=== PATIENT | male | born 1965 | race Caucasian/White ===

== ENCOUNTER 2016-07-02 08:34 | Emergency (ER) | payer SELFPAY ==
[~2016-07-02] VITALS: Ht 185.4 cm; Wt 115.3 kg
[2016-07-02 08:37] VITALS: TEMP 36.5; Ht 185.4 cm; Wt 115.3 kg
[2016-07-02 10:14] LABS: URINE APPEARANCE CLEAR (CLEAR); URINE BILIRUBIN NEG (NEG); URINE COLOR DK YELLOW; URINE NITRITE NEG (NEG); UROBILINOGEN NEG (NEG); ZZURINE CULT IF INDIC CATH NO
[2016-07-02 10:16] LABS: MANUAL MICROSCOPIC REQUIRED? NO; REVIEW REQ? NO
[2016-07-02 10:23] LABS: BASO % 0.3 %; BASO ABS # 0.02 K/uL (0-0.2); COMPLETE YES; EOS % 0.5 %; HEMATOCRIT 41.5 % (42-52); IG% 0.2 %; LYMPH % 32.1 %; LYMPH ABS # 1.97 K/uL (1.2-3.4); MEAN CELL VOLUME 92.2 fL (80-100); MEAN CORPUSCULAR HEMOGLOBIN 32.2 pg (25-34); MEAN CORPUSCULAR HGB CONC 34.9 g/dl (32-36); MEAN PLATELET VOLUME 10.4 fL (7.4-10.4); MONO % 9.9 %; PLATELET COUNT 196 K/uL (130-400); WHITE BLOOD COUNT 6.14 K/uL (4.8-10.8)
[2016-07-02 10:49] LABS: ALB/GLOB RATIO 1.1 (0.9-2); BUN/CREATININE RATIO 17.3 (10-20); CALCIUM 8.9 mg/dl (8.5-10.1); CREATININE 1.2 mg/dl (0.60-1.40); MAGNESIUM 2.4 mg/dl (1.8-2.4); POTASSIUM 4.1 mmol/L (3.5-5.1)
--- NOTE | 2016-07-02 11:19 | DIAGNOSTIC IMAGING REPORT ---
ULTRASOUND KIDNEYS AND BLADDER CLINICAL HISTORY: Decreased urine output. COMPARISON STUDY: No priors. TECHNIQUE: Real-time, grayscale, and color flow sonography of the kidneys and bladder is performed. Images are reviewed in the transverse and longitudinal planes. FINDINGS: Kidneys: The kidneys are normal in size and echotexture. The right kidney measures 12.1 x 6.5 x 7.1 cm and the left kidney measures 12.4 x 6.4 x 5.9 cm. There is no hydronephrosis. No shadowing renal calculi are identified. There is no sonographic evidence of contour deforming renal mass lesion. No perinephric fluid is identified. Bladder: The bladder was decompressed around a Carvajal catheter and could not be evaluated. Upper abdomen: Survey images of the liver demonstrate hepatomegaly and hepatic steatosis. IMPRESSION: 1. The kidneys are normal in size and without hydronephrosis. 2. The bladder was decompressed around a Carvajal catheter and could not be assessed. Electronically signed by: Michael Smith M.D. 07/02/2016 11:18 AM Dictated Date/Time: 07/02/2016 11:17 AM
[2016-07-02 11:40] LABS: URINE APPEARANCE TURBID (CLEAR); URINE BILIRUBIN NEG (NEG); URINE COLOR YELLOW; URINE NITRITE NEG (NEG); URINE PH >= 9.0 (4.5-7.5); URINE SPECIFIC GRAVITY 1.023 (1.000-1.030); UROBILINOGEN NEG (NEG); ZZURINE CULT IF INDIC CATH NO
[2016-07-02 11:41] LABS: MANUAL MICROSCOPIC REQUIRED? NO; REVIEW REQ? NO
[2016-07-02] MEDS ORDERED: SODIUM CHLORIDE 0.9% 1000ML 1,000 ML IV STA (12:14)
[2016-07-02] MEDS ORDERED: OPTIRAY 320 IV PRN (12:30)
--- NOTE | 2016-07-02 13:03 | DIAGNOSTIC IMAGING REPORT ---
ABDOMEN AND PELVIS CT WITH IV CONTRAST CT DOSE: 961.91 mGy.cm HISTORY: Unable to void. voiding issues TECHNIQUE: Multiaxial CT images of the abdomen and pelvis were performed following the use of intravenous contrast. COMPARISON STUDY: None. FINDINGS: The lung bases are clear. No pneumoperitoneum. No pneumatosis. No suspicious lytic or blastic osseous lesions. The liver, gallbladder, pancreas, adrenal glands, and kidneys are unremarkable. No hydronephrosis. There is an enhancing 1.5 cm lesion within the spleen. No retroperitoneal lymphadenopathy. Mild to moderate atherosclerotic plaque within the abdominal aorta. The abdominal aorta measures up to 2.6 cm in diameter. The bladder is completely decompressed by a Carvajal catheter. No pelvic free fluid. A few diverticula. The prostate gland is normal in size. No bowel wall thickening or obstruction. Normal appendix. IMPRESSION: 1. The bladder is completely decompressed by a Carvajal catheter. 2. No hydronephrosis. 3. No bowel wall thickening or obstruction. 4. A few colonic diverticula. 5. Normal appendix. 6. A 15 mm enhancing lesion within the spleen. This is indeterminate but favors a hemangioma or hamartoma. Electronically signed by: Maurisio Burnett M.D. 07/02/2016 1:01 PM Dictated Date/Time: 07/02/2016 12:51 PM
--- NOTE | 2016-07-02 13:26 | EMERGENCY ROOM VISIT NOTE ---
History First contact with patient: 09:18 Chief Complaint: UNABLE TO VOID Stated Complaint: NO URINATION/BM IN 36 HOURS Nursing Triage Summary: Pt c/o urinary retention x 3 weeks, he thought it was due to the medication he was taking. But in the last 36 hours he only had about 60cc out. Took 40 of lasix Friday, put out 700cc in 4 hours, states it was clear, light, no sediment. Believes he has prostate problems. States he feels like he is filling up with fluid. Pt states he was taking amilodipine, but hasn't taken it for 2 weeks. Patient reported having CT scans with IV contrast recently and he isn't sure if that could have done something to his kidney function. Patient reports abdomen is distended more than usual. History of Present Illness The patient is a 50 year old male who presents to the Emergency Department by private vehicle for evaluation of his voiding issues. He reports that he is not urinated in the last 36 hours. He was recently seen at the [facility] and had a cardiac catheterization performed which demonstrated slight coronary artery disease. No stenting or intervention was performed at this point. The patient reports being placed on blood pressure medications as well as niacin. He reports that shortly after he received a CT with IV contrast of the abdomen and pelvis as well as the head. He's had decreased urinary output most recently. He was concerned as he felt as though his IV contrast studies has resulted in renal damage. On Friday, he took 40 mg of Lasix that was a friend's. He had a significant amount of urinary output. He has not had any urinary output since. He feels bloated. He reports some mild discomfort in his abdomen rating his pain a 6/10. He denies a history of prostate issues. He is frustrated with the [facility] as he reports that they're not managing his symptoms appropriately. 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 He denies any fevers, chills, headaches, dizziness, lightheadedness, chest pain, palpitations , short of breath, nausea, vomiting, hematochezia, melena, hematuria, or dysuria. He denies any risk for STI. Review of Systems A complete 10-point Review of Systems was discussed with the patient, with pertinent positives and negatives listed in the History of Present Illness. All remaining Review of Systems questions can be considered negative unless otherwise specified. Social History Smoking Status: Former Smoker Smokeless Tobacco Use: No Drug Use: none Occupation Status: employed Current/Historical Medications No Active Prescriptions or Reported Meds Allergies Coded Allergies: Statins (Verified Allergy, Intermediate, muscle cramping, gi bleed, ) Physical Exam Vital Signs Date Time Temp Pulse Resp B/P Pulse Ox O2 Delivery O2 Flow Rate FiO2 07/02/16 13:50 81 18 112/92 99 07/02/16 12:45 79 115/89 07/02/16 11:09 77 18 138/78 98 Room Air 07/02/16 08:37 36.5 86 18 134/78 98 Room Air Pain Rating (0-10): 2 Physical Exam VITAL SIGNS - Vital signs and nursing notes were reviewed. GENERAL - 50-year-old male appearing his stated age who is in no acute distress. Communicates well with provider and answers questions appropriately. LUNGS - Chest wall symmetric without accessory muscle use, intercostals retractions, or central cyanosis. Normal vesicular breath sounds CTA B/L. No wheezes, rales, or rhonchi appreciated. CARDIAC - RRR with S1/S2. No murmur, rubs, or gallops appreciated. ABDOMEN - Abdominal contour obese and without pulsations or visible masses. BS normoactive all four quadrants. No tenderness to palpation appreciated throughout. No guarding. No Rebound Tenderness. Negative Rovsing's. Negative Gerardo's. No palpable masses, hepatosplenomegaly, or ascites noted. GENITOURINARY -circumcised male without penile lesions or adhesions. No urethral discharge. No testicular tenderness to palpation appreciated bilaterally. No palpable masses. EXTREMITIES - No clubbing or peripheral cyanosis. No pretibial edema present. +3 /5 radial and dorsalis pedis pulses palpated throughout. PSYCH - A&Ox3 and cooperates fully with examiner. Pt is very pleasant and interacts well with examiner. Medical Decision & Procedures ER Provider Diagnostic Interpretation: Radiological imaging and reports were reviewed by myself. Radiologist's Interpretation as follows: ULTRASOUND KIDNEYS AND BLADDER CLINICAL HISTORY: Decreased urine output. COMPARISON STUDY: No priors. TECHNIQUE: Real-time, grayscale, and color flow sonography of the kidneys and bladder is performed. Images are reviewed in the transverse and longitudinal planes. FINDINGS: Kidneys: The kidneys are normal in size and echotexture. The right kidney measures 12.1 x 6.5 x 7.1 cm and the left kidney measures 12.4 x 6.4 x 5.9 cm. There is no hydronephrosis. No shadowing renal calculi are identified. There is no sonographic evidence of contour deforming renal mass lesion. No perinephric fluid is identified. Bladder: The bladder was decompressed around a Carvajal catheter and could not be evaluated. Upper abdomen: Survey images of the liver demonstrate hepatomegaly and hepatic steatosis. IMPRESSION: 1. The kidneys are normal in size and without hydronephrosis. 2. The bladder was decompressed around a Carvajal catheter and could not be assessed. ABDOMEN AND PELVIS CT WITH IV CONTRAST CT DOSE: 961.91 mGy.cm HISTORY: Unable to void. voiding issues TECHNIQUE: Multiaxial CT images of the abdomen and pelvis were performed following the use of intravenous contrast. COMPARISON STUDY: None. FINDINGS: The lung bases are clear. No pneumoperitoneum. No pneumatosis. No suspicious lytic or blastic osseous lesions. The liver, gallbladder, pancreas, adrenal glands, and kidneys are unremarkable. No hydronephrosis. There is an enhancing 1.5 cm lesion within the spleen. No retroperitoneal lymphadenopathy. Mild to moderate atherosclerotic plaque within the abdominal aorta. The abdominal aorta measures up to 2.6 cm in diameter. The bladder is completely decompressed by a Carvajal catheter. No pelvic free fluid. A few diverticula. The prostate gland is normal in size. No bowel wall thickening or obstruction. Normal appendix. IMPRESSION: 1. The bladder is completely decompressed by a Carvajal catheter. 2. No hydronephrosis. 3. No bowel wall thickening or obstruction. 4. A few colonic diverticula. 5. Normal appendix. 6. A 15 mm enhancing lesion within the spleen. This is indeterminate but favors a hemangioma or hamartoma. Laboratory Results 07/02/16 09:51 Red Blood Count 4.50, Mean Corpuscular Volume 92.2, Mean Corpuscular Hemoglobin 32.2, Mean Corpuscular Hemoglobin Concent 34.9, Mean Platelet Volume 10.4, Neutrophils (%) (Auto) 57.0, Lymphocytes (%) (Auto) 32.1, Monocytes (%) (Auto) 9.9, Eosinophils (%) (Auto) 0.5, Basophils (%) (Auto) 0.3, Neutrophils # (Auto) 3.50, Lymphocytes # (Auto) 1.97, Monocytes # (Auto) 0.61, Eosinophils # (Auto) 0.03, Basophils # (Auto) 0.02 07/02/16 09:51 Test 07/02/16 09:51 07/02/16 09:53 07/02/16 10:06 White Blood Count 6.14 K/uL (4.8-10.8) Red Blood Count 4.50 M/uL (4.7-6.1) Hemoglobin 14.5 g/dL (14.0-18.0) Hematocrit 41.5 % (42-52) Mean Corpuscular Volume 92.2 fL (80-100) Mean Corpuscular Hemoglobin 32.2 pg (25-34) Mean Corpuscular Hemoglobin Concent 34.9 g/dl (32-36) Platelet Count 196 K/uL (130-400) Mean Platelet Volume 10.4 fL (7.4-10.4) Neutrophils (%) (Auto) 57.0 % Lymphocytes (%) (Auto) 32.1 % Monocytes (%) (Auto) 9.9 % Eosinophils (%) (Auto) 0.5 % Basophils (%) (Auto) 0.3 % Neutrophils # (Auto) 3.50 K/uL (1.4-6.5) Lymphocytes # (Auto) 1.97 K/uL (1.2-3.4) Monocytes # (Auto) 0.61 K/uL (0.11-0.59) Eosinophils # (Auto) 0.03 K/uL (0-0.5) Basophils # (Auto) 0.02 K/uL (0-0.2) RDW Standard Deviation 43.2 fL (36.4-46.3) RDW Coefficient of Variation 12.8 % (11.5-14.5) Immature Granulocyte % (Auto) 0.2 % Immature Granulocyte # (Auto) 0.01 K/uL (0.00-0.02) Anion Gap 8.0 mmol/L (3-11) Est Creatinine Clear Calc Drug Dose 95.8 ml/min Estimated GFR () 80.1 Estimated GFR (Non- 69.1 BUN/Creatinine Ratio 17.3 (10-20) Calcium Level 8.9 mg/dl (8.5-10.1) Magnesium Level 2.4 mg/dl (1.8-2.4) Total Bilirubin 0.4 mg/dl (0.2-1) Aspartate Amino Transf (AST/SGOT) 26 U/L (15-37) Alanine Aminotransferase (ALT/SGPT) 36 U/L (12-78) Alkaline Phosphatase 83 U/L (45-117) Total Protein 7.3 gm/dl (6.4-8.2) Albumin 3.9 gm/dl (3.4-5.0) Globulin 3.4 gm/dl (2.5-4.0) Albumin/Globulin Ratio 1.1 (0.9-2) Lipase 214 U/L (73-393) Chemistry Specimen Hemolysis PH-Dpd-R-Type Natriuretic Peptide < 15 pg/ml (0-900) Urine Color YELLOW Urine Appearance TURBID (CLEAR) Urine pH >= 9.0 (4.5-7.5) Urine Specific Morley 1.023 (1.000-1.030) Urine Protein NEG (NEG) Urine Glucose (UA) NEG (NEG) Urine Ketones NEG (NEG) Urine Occult Blood NEG (NEG) Urine Nitrite NEG (NEG) Urine Bilirubin NEG (NEG) Urine Urobilinogen NEG (NEG) Urine Leukocyte Esterase NEG (NEG) Urine WBC (Auto) 0 /hpf (0-5) Urine RBC (Auto) 0-4 /hpf (0-4) Urine Hyaline Casts (Auto) 1-5 /lpf (0-5) Urine Epithelial Cells (Auto) 10-20 /lpf (0-5) Urine Bacteria (Auto) NEG (NEG) Medications Administered Medications (Trade) Dose Ordered Sig/Shauna Route Start Time Stop Time Status Last Admin Dose Admin Sodium Chloride (Nss 1000ml) 1,000 ml @ 999 mls/hr Q1H1M STAT IV 07/02/16 12:14 07/02/16 13:14 DC 07/02/16 12:18 999 MLS/HR ED Course Patient was seen and evaluated by myself. I had a lengthy conversation with the patient regarding his symptoms. Full catheter was placed by nursing staff as the patient reports inability to void. Urine output was adequate. Laboratory results demonstrate no acute leukocytosis, worrisome anemia, or bandemia. The patient has no significant electrolyte abnormalities. Renal function is well within normal limits. BNP is not elevated. Urinalysis does not suggest infection. Ultrasound of the kidneys and bladder were obtained. Laboratory results and imaging studies were reviewed with the patient who acknowledges understanding. The patient persists on diagnosis as he reports that he has not had urinary output in greater than 36 hours. I explained to him this is certain not suggestive of his labs or imaging studies, however I did offer alternatives including the possibility of some obstructive issue secondary to prostate issues. The patient is requesting further imaging studies. He was educated that the increasing risk of radiation certainly could be of concern down the road. He acknowledges his understanding and requests to proceed forward. CT of the abdomen and pelvis with IV contrast was ordered. Imaging results as above. Laboratory results and imaging studies were reviewed with the patient who acknowledges understanding. On review the patient, he is pointing to a clot in his catheter. He is seated on the toilet and would not come back to the bed for me to examine the patient. I did have to into the bathroom to examine the patient as he sat on the toilet with his catheter in place. He was encouraged to stop bearing down as the catheter will drain the urine. He was educated on his CT findings. I explained the patient that this point, there are no acute findings for further intervention in the emergency setting. [facility] was [facility] at their recommendation. The patient was educated on worrisome symptoms for return visit to the emergency department. Patient discharged home afebrile and in good condition. Medical Decision Given the patient's presentation and stated complaint, I did elect to perform the above-mentioned workup. The patient presents today complaining of decreased urinary output over 36 hours. He reports that he has not voided in 36 hours. I find a significant hard to believe, particularly given the fact that the patient's creatinine in view and are well within normal limits and his urinalysis does not suggest significant concentration. Full catheter was placed , regardless, in the event the patient was having an obstructive uropathy which certainly is reasonable in his age group. He has received multiple doses of intravenous contrast which is of concern to him. There does not appear to be any residual renal trauma secondary to this, however. Ultrasound demonstrated no acute findings. Overall, the patient's exam and labs are encouraging. In a conversation with the patient, he has persistent that there is an issue and is concern for possible prostate issue. I did offer prostate exam as well as imaging studies. He suggests imaging study be performed. I did explain the risks of increasing radiation as well as another dose of intravenous contrast. He reports that since his creatinine is well within normal limits, he is fine having this procedure done and would rather have it done today. CT findings are not consistent with any acute findings at this point. This information was relayed to the patient. The patient appears fixated on this topic. When I returned to evaluate the patient, he continues to sit on the toilet and would not exit the bathroom for me to evaluate the patient in bed. He is sitting essentially naked on the toilet and pulling his catheter. I explained to the patient that there is no need for him to bear down as the catheter will void his urine without doing so. Eventually, I did explain all the patient's findings today and encourage him to follow up with [facility] or [facility] at his earliest convenience. He was educated on worrisome symptoms for return visit to the emergency department. Patient discharged home in good condition. In the evaluation and treatment of this patient, the following differential diagnoses were considered: somatization disorder, obstructive uropathy, acute kidney injury, prostatomegaly, prostatitis, UTI, STI, amongst others. Impression Primary Impression: Voiding difficulty Additional Impression: Decreased urine output Departure Information Dispostion Home / Self-Care Condition GOOD Prescriptions No Active Prescriptions or Reported Meds Referrals ANNA BONNER M.D. (PCP) Patient Instructions [facility] Additional Instructions Please follow-up with the [facility] for ongoing management of your symptoms. You may warrant PSA evaluation and/or urology consultation based on the recommendation of your provider. Return for any changing/worsening symptoms. Problem Qualifiers
[2016-07-02 13:50] VITALS: BP 112/92; PULSE 81; O2SAT 99
[2016-09-16] MEDS ORDERED: LISI-729 PO (09:31)
== END 2016-07-02 13:52 | disposition home or self-care (01) ==
LOC: C.EDB 08:36
DX: K59.00 Constipation, unspecified (principal); R33.9 Retention of urine, unspecified

== ENCOUNTER → 2016-09-18 | Day surgery (SDC) | payer OTHER ==
[2016-09-16 09:32] VITALS: BMI 32.0
[~2016-09-18] VITALS: Ht 185.4 cm; Wt 111.4 kg
[~2016-09-18] MED LIST: LIDOCAINE HCL 2% 2 ML VIAL (20MG/ML) ONE; LISI-729 PO; PROPOFOL IV EMULSION 10 MG/ML 20 ML VIAL IV ONE; SODIUM CHLORIDE 0.9% 500ML 500 ML IV ONE
[2016-09-18 08:09] VITALS: Ht 185.4 cm; Wt 111.4 kg
--- NOTE | 2016-09-18 09:35 | Endo History and Physical ---
History & Physical Date of Service: Sep 18, 2016. Chief Complaint: change in stool consistency. Referring Physician: Dr. Castellanos History of Present Illness 50 yo presenting for c/o of change of bowel habits and discoloration of stool. No family hx of colon cancer or rectal bleeding. No other alarm symptoms Past Surgical History Hx Cardiac Surgery: No Hx Internal Defibrillator: No Hx Pacemaker: No Hx Abdominal Surgery: No Hx of Implantable Prosthesis: No Hx Post-Op Nausea and Vomiting: No Hx Cancer Surgery: No Hx Thoracic Surgery: No Hx Orthopedic: No Hx Urinary Tract Surgery: No Family History None Social History Smoking Status: Former Smoker Hx Substance Use: No Hx Alcohol Use: No Allergies Coded Allergies: Statins (Verified Allergy, Intermediate, muscle cramping, gi bleed, ) Current Medications Reported Home Medications Medications Dose Route/Sig Max Daily Dose Days Date Category Prinivil (Lisinopril) 5 Mg Tab 5 Mg PO QAM 09/16/16 Reported Vital Signs Weight (Kilograms): 111.36 Height (Feet): 6 Height (Inches): 1 Date Time Temp Pulse Resp B/P Pulse Ox O2 Delivery O2 Flow Rate FiO2 09/18/16 08:16 36.5 72 18 153/93 100 Room Air Physical Exam General Appearance: WD/WN, no apparent distress Respiratory/Chest: Respiratory effort: no dyspnea Auscultation: breath sounds normal, CTA except as noted, no wheezing Cardiovascular: Apical Impulse: not displaced Heart Auscultation: RRR, normal S1, normal S2 Abdomen: Bowel Sounds: normal Inspection & Palpation: soft, non-distended Assessment and Plan 50 yo presenting for change of bowel habits
--- NOTE | 2016-09-18 11:16 | Discharge Instructions ---
Endoscopy Patient Instructions Date / Procedure(s) Performed Sep 18, 2016. Colonoscopy Allergy Information Coded Allergies: Statins (Verified Allergy, Intermediate, muscle cramping, gi bleed, ) Discharge Date / Findings Sep 18, 2016. 2 Polyps removed, small diverticuli and internal hemorrhoids, otherwise normal. Medication Instructions Restart Stopped Medication(s): may try some as needed or daily miralax Provider Instructions Activity Restrictions - No exercising or heavy lifting for 24 hours. - Do not drink alcohol the day of the procedure. - Do not drive a car or operate machinery until the day after the procedure. - Do not make any important decisions or sign important papers in 24 hours after the procedure. Following Day: - Return to full activity which may include returning to work/school. Diet Start your diet with liquids and light foods (jello, soup, juice, toast). Then eat your usual diet if not nauseated. Treatment For Common After Affects For mild abdominal pain, bloating, or excessive gas: - Rest - Eat lightly - Lie on right side Follow-Up Information Follow-up with Dr. Castellanos as scheduled Anesthesia Information What You Should Know You have had a procedure that required some medicine to reduce anxiety and discomfort. This treatment is called moderate sedation. After receiving the treatment, you may be sleepy, but you will be able to breathe on your own. The effects of the treatment may last for several hours. Follow these instructions along with Activity/Diet recommendations noted above: * Do NOT do anything where dizziness or clumsiness would be dangerous. * Rest quietly at home today, then you can be up and about tomorrow. * Have a responsible person stay with you the rest of today. * You may have had an I.V. today. If so, you may take the dressing off later today. Recommendations Call your doctor if: * Trouble breathing * Continuous vomiting for more than 24 hours * Temperature above 101 degrees * Severe abdominal pain or bloating * Pain not relieved by pain medicine ordered * There is increased drainage or redness from any incision * A large amount of rectal bleeding greater than 2-3 tablespoons. (If you had a polyp/s removed or have hemorrhoids, a small amount of blood - from the rectum is to be expected.) * You have any unanswered questions or concerns. IN THE EVENT OF A SERIOUS EMERGENCY, GO TO THE NEAREST EMERGENCY ROOM Your discharge instructions were prepared by provider Aydin Huffman. Patient Instructions Signature Page Gumaro Guerradeonte Patient (or Guardian) Signature/Date: I have read and understand the instructions given to me by my caregivers. Caregiver/RN/Doctor Signature/Date: The above-named patient and/or guardian has received patient instructions on this date. + Original Patient Signature Page (only) stays with chart. Please make copy for patient.
--- NOTE | 2016-09-18 11:19 | GI REPORT ---
Procedure Date: 09/18/2016 8:55 AM Procedure: Colonoscopy Indications: Change in bowel habits Medicines: General Anesthesia Complications: No immediate complications. Estimated blood loss: None. Estimated Blood Loss: Estimated blood loss: none. Procedure: Pre-Anesthesia Assessment: - Pre-Anesthesia Assessment: - Prior to the procedure, a History and Physical was performed, and patient medications, allergies and sensitivities were reviewed. The patient's tolerance of previous anesthesia was reviewed. Please see [employer] for complete details. - The risks and benefits of the procedure and the sedation options and risks were discussed with the patient. All questions were answered and informed consent was obtained. - Patient identification and proposed procedure were verified prior to the procedure by the physician and the nurse. The procedure was verified in the pre-procedure area in the procedure room. After obtaining informed consent, the endoscope was passed carefully and meticuously under direct vision and only advanced when the lumen was clearly identified, C02 insuflation was utilized throughout the entirity of the procedure. Throughout the procedure, the patient's blood pressure, pulse, and oxygen saturations were monitored continuously. After I obtained informed consent, the scope was passed under direct vision. Throughout the procedure, the patient's blood pressure, pulse, and oxygen saturations were monitored continuously. The scope was introduced through the anus and advanced to the terminal ileum, with identification of the appendiceal orifice and IC valve. The colonoscopy was performed without difficulty. The patient tolerated the procedure well. The quality of the bowel preparation was good. Findings: A 8 mm polyp was found in the ascending colon. The polyp was sessile. The polyp was removed with a saline injection-lift technique using a hot snare. Resection and retrieval were complete. A 3 mm polyp was found in the rectum. The polyp was sessile. The polyp was removed with a cold snare. Resection and retrieval were complete. Multiple small-mouthed diverticula were found in the sigmoid colon. Internal hemorrhoids were found during retroflexion. The exam was otherwise without abnormality on direct and retroflexion views. Impression: - One 8 mm polyp in the ascending colon, removed using injection-lift and a hot snare. Resected and retrieved. - One 3 mm polyp in the rectum, removed with a cold snare. Resected and retrieved. - Diverticulosis in the sigmoid colon. - Internal hemorrhoids. - The examination was otherwise normal on direct and retroflexion views. Recommendation: - Discharge patient to home (with escort). - Repeat colonoscopy in 5 years for surveillance based on pathology results. - Return to referring physician as previously scheduled. Aydin Huffman MD 09/18/2016 11:18:40 AM This report has been signed electronically. Note Initiated On: 09/18/2016 8:55 AM I attest to the content of the Intraoperative Record and orders documented therein, exceptions below
[2016-09-18 11:48] VITALS: BP 150/92; PULSE 81; O2SAT 100
--- NOTE | 2016-09-18 14:25 | Anesthesiology Progress Note ---
Anesthesia Post Op Note Date & Time Sep 18, 2016 at 14:24 Vital Signs Pain Intensity: 0 Vital Signs Past 12 Hours Date Time Temp Pulse Resp B/P Pulse Ox O2 Delivery O2 Flow Rate FiO2 09/18/16 11:48 81 20 150/92 100 Room Air 09/18/16 11:33 72 20 106/86 97 Room Air 09/18/16 11:18 75 12 108/72 95 Room Air 09/18/16 08:16 36.5 72 18 153/93 100 Room Air Notes Mental Status: alert / awake / arousable, participated in evaluation Pt Amnestic to Procedure: Yes Nausea / Vomiting: adequately controlled Pain: adequately controlled Airway Patency, RR, SpO2: stable & adequate BP & HR: stable & adequate Hydration State: stable & adequate Anesthetic Complications: no major complications apparent
== END | disposition home or self-care (01) ==
LOC: C.GI 07:44
PROVIDERS: ATTEND Internal Medicine
DX: D12.2 Benign neoplasm of ascending colon (principal); R19.4 Change in bowel habit; D12.8 Benign neoplasm of rectum; K64.8 Other hemorrhoids; K57.30 Diverticulosis of large intestine without perforation or abscess without bleeding; Z87.891 Personal history of nicotine dependence